=== PATIENT | male | born 1990 | race Caucasian/White ===

== ENCOUNTER 2016-11-29 21:30 | Emergency (ER) | payer MEDICARE | END 2016-11-29 22:32 | disposition left against medical advice (07) | LOC: ER1 21:30 | DX: Z53.21 Procedure and treatment not carried out due to patient leaving prior to being seen by health care provider (principal) ==

== ENCOUNTER → 2016-12-04 | Outpatient (CLI) | payer MEDICARE | LOC: EMI 11-23 09:00 | DX: H53.9 Unspecified visual disturbance (principal); Z88.8 Allergy status to other drugs, medicaments and biological substances | CPT/HCPCS: 70553; A9577; J7050 ==